=== PATIENT | female | born 1985 | race Caucasian/White ===

== ENCOUNTER 2018-07-10 12:33 | Inpatient (IN) | payer OTHER ==
[~2018-07-10 12:33] MED LIST: EPINEPHrine 1 MG INJ
[2018-07-10] MEDS ORDERED: OXYTOCIN 30 UNITS/LR 500 ML IV ×3 (13:00→15:30)
[2018-07-10] MEDS ORDERED: MISOPROSTOL 200 MCG TAB PR ×2 (13:00→15:30)
[2018-07-10] MEDS ORDERED: METHYLERGONOVINE 0.2 MG INJ IM ×2 (13:00→15:30)
[2018-07-10] MEDS ORDERED: CARBOPROST 250 MCG INJ IM ×2 (13:00→15:30)
[2018-07-10] MEDS: LACTATED RINGER'S 1,000 ML IV ×2 (13:16→13:46)
[2018-07-10 13:18] LABS: ADD MAN DIFF? NO
[2018-07-10 13:21] LABS: BASOPHILS % 0.3 % (0.0-2.0); EOSINOPHILS # 0.1 10^3/ul (0.0-0.5); EOSINOPHILS % 0.6 % (0.0-7.0); HEMATOCRIT 41.8 % (37.0-47.0); HEMOGLOBIN 14.3 g/dl (12.0-16.0); LYMPHOCYTES # 1.7 10^3/ul (0.8-2.9); LYMPHOCYTES % 15.7 % (15.0-51.0); MEAN CORPUSCULAR HEMOGLOBIN 32.4 pg (29.0-33.0); MEAN CORPUSCULAR HGB CONC 34.2 g/dl (32.0-37.0); MEAN CORPUSCULAR VOLUME 94.6 fl (82.0-101.0); MEAN PLATELET VOLUME 11.5 fl (7.4-10.4); MONOCYTE # 0.6 10^3/ul (0.3-0.9); MONOCYTES % 5.3 % (0.0-11.0); NEUTROPHIL # 8.5 10^3/ul (1.6-7.5); NEUTROPHILS % 77.6 % (39.0-77.0); PLATELET COUNT 227 10^3/UL (140-415); RED BLOOD COUNT 4.42 10^6/ul (4.20-5.40); RED CELL DISTRIBUTION WIDTH 12.7 % (11.5-14.5)
[2018-07-10 13:43] LABS: INR 0.93; PARTIAL THROMBOPLASTIN TIME 26.7 Sec (23.0-35.0); PROTIME 12.6 Sec (11.9-14.9)
[2018-07-10] MEDS: CITRIC ACID/NA CITRATE 30 ML CUP PO (13:54)
[2018-07-10] MEDS: FAMOTIDINE 20 MG INJ IV (13:54)
[2018-07-10] MEDS: METOCLOPRAMIDE 10 MG INJ IV (13:54)
[2018-07-10] MEDS: CEFAZOLIN 2 GM/50 ML (PMX) 50 ML IVPB (13:56)
[2018-07-10] MEDS ORDERED: BUPIVACAINE 0.75%/DEXT (SPINAL) 2 ML INJ (14:02)
[2018-07-10] MEDS ORDERED: morphine SULFATE/PF (10 MG/10 ML) INJ (14:02)
[2018-07-10] MEDS ORDERED: OXYTOCIN 10 UNIT INJ (14:03)
[2018-07-10 14:17] LABS: HEPATITIS B SURFACE ANTIGEN NEGATIVE (NEGATIVE)
[2018-07-10] MEDS ORDERED: FENTAnyl 50 MCG/ML VIAL IV ×2 (14:30)
[2018-07-10] MEDS ORDERED: HYDROmorphONE 1 MG/5 ML IV SYRINGE IV ×3 (14:30)
[2018-07-10] MEDS ORDERED: NALOXONE (0.4 MG/ML) INJ IV (14:30)
[2018-07-10] MEDS ORDERED: KETOROLAC 30 MG INJ IV ×2 (14:30)
[2018-07-10] MEDS ORDERED: DIPHENHYDRAMINE 50 MG INJ IV (14:30)
[2018-07-10] MEDS ORDERED: ZOLPIDEM 5 MG TAB PO (14:30)
[2018-07-10] MEDS ORDERED: HYDROmorphONE 0.5 MG/0.5 ML SYG IV ×2 (14:30)
[2018-07-10] MEDS ORDERED: ONDANSETRON 4 MG INJ IV (14:30)
[2018-07-10] MEDS ORDERED: LEVALBUTEROL (NEB) 1.25 MG/0.5 ML AMP HHN (14:30)
[2018-07-10] MEDS ORDERED: OXYCODONE/ACETAMINOPHEN (5/325) TAB PO ×2 (15:30)
[2018-07-10] MEDS: ONDANSETRON 4 MG INJ IV (15:43)
[2018-07-10] MEDS: OXYTOCIN 30 UNITS/LR 500 ML IV ×2 (16:09→20:36)
[2018-07-10] MEDS: DIPHENHYDRAMINE 50 MG INJ IV (17:01)
[2018-07-10] MEDS: IBUPROFEN 600 MG TAB PO (18:00)
[2018-07-10 18:17] LABS: RAPID PLASMA REAGIN NONREACTIVE (NR)
[2018-07-11] MEDS: LACTATED RINGER'S 1,000 ML IV ×2 (05:13→13:00)
[2018-07-11] MEDS: IBUPROFEN 600 MG TAB PO ×3 (05:24→17:42)
[2018-07-11 08:37] LABS: ADD MAN DIFF? NO
[2018-07-11 08:40] LABS: BASOPHILS % 0.2 % (0.0-2.0); EOSINOPHILS % 0.1 % (0.0-7.0); HEMATOCRIT 33.9 % (37.0-47.0); HEMOGLOBIN 11.5 g/dl (12.0-16.0); LYMPHOCYTES # 1.5 10^3/ul (0.8-2.9); LYMPHOCYTES % 10.7 % (15.0-51.0); MEAN CORPUSCULAR HGB CONC 33.9 g/dl (32.0-37.0); MEAN CORPUSCULAR VOLUME 97.1 fl (82.0-101.0); MEAN PLATELET VOLUME 11.7 fl (7.4-10.4); MONOCYTE # 0.8 10^3/ul (0.3-0.9); NEUTROPHIL # 11.4 10^3/ul (1.6-7.5); NEUTROPHILS % 82.6 % (39.0-77.0); PLATELET COUNT 187 10^3/UL (140-415); RED BLOOD COUNT 3.49 10^6/ul (4.20-5.40)
[2018-07-11 08:40] LABS: WHITE BLOOD COUNT 13.8 10^3/ul (4.8-10.8)
[2018-07-11] MEDS: SENNA/DOCUSATE NA (8.6MG/50MG) TAB PO (21:27)
[2018-07-12] MEDS: IBUPROFEN 600 MG TAB PO ×4 (00:34→17:10)
[2018-07-12] MEDS: SENNA/DOCUSATE NA (8.6MG/50MG) TAB PO (09:07)
[2018-07-13] MEDS: IBUPROFEN 600 MG TAB PO ×2 (00:13→05:50)
[2018-07-13] MEDS: SENNA/DOCUSATE NA (8.6MG/50MG) TAB PO ×2 (00:13→08:51)
== END 2018-07-13 12:00 | disposition home or self-care (01) | DRG 785 ==
LOC: L-D 12:33 → PP1 18:29
PROVIDERS: Obstetrics & Gynecology
PROC: 10D00Z1 Extraction of Products of Conception, Low, Open Approach (ICD-10-PCS; principal; 2018-07-10 12:30)
PROC: 0UB70ZZ Excision of Bilateral Fallopian Tubes, Open Approach (ICD-10-PCS; 2018-07-10 12:30)
DX: O34.219 Maternal care for unspecified type scar from previous cesarean delivery (principal); O99.214 Obesity complicating childbirth; E66.01 Morbid (severe) obesity due to excess calories; Z3A.39 39 weeks gestation of pregnancy; Z37.0 Single live birth; Z30.2 Encounter for sterilization; Z86.19 Personal history of other infectious and parasitic diseases
CPT/HCPCS: 85025; 85610; 85730; 86592; 86850; 86900; 86901; 87340; 88302; 99464